=== PATIENT | female | born 1960 | race Two or more races ===

== ENCOUNTER 2022-08-17 16:26 | Emergency (ER) | payer MEDICAID, OTHER ==
[~2022-08-17] VITALS: Ht 165.1 cm; Wt 117.0 kg
[2022-08-17] MEDS ORDERED: KETOROLAC TROMETHAMINE INJ 30 MG/ML VIAL ONE (16:43)
[2022-08-17] MEDS ORDERED: CYCLOBENZAPRINE 10 MG TABLET ONE (16:43)
--- NOTE | 2022-08-17 16:45 | NUR ---
[id number] FROM HOME FOR LOWER BACK PAIN RADIATING TO LEFT KNEE X 2 WEEKS
[2022-08-17] MEDS ORDERED: TRAMADOL HCL 50 MG TABLET ONE (16:49)
[2022-08-17] MEDS ORDERED: TRAMADOL HCL 50 MG TABLET PO ONE (17:00)
[2022-08-17] MEDS ORDERED: CYCLOBENZAPRINE 10 MG TABLET PO ONE (17:00)
[2022-08-17] MEDS ORDERED: KETOROLAC TROMETHAMINE INJ 60 MG/2 ML VIAL IM ONE (17:00)
--- NOTE | 2022-08-17 19:36 | NUR ---
Long AOx4, able to express her concerns. Patient with no nigsn of distress. Reports she has been experiencing sciatica pain on left extremity. No signs of distress or discomfort. Discussed plan of care, patient verbalized agreement.
[2022-08-17] MEDS ORDERED: KETO10TA2 PO (20:29)
[2022-08-17] MEDS ORDERED: TRAM50TA2 PO (20:29)
--- NOTE | 2022-08-17 21:14 | NUR ---
[facility] ETA 90 MINUTES- 2 HOURS.
[2022-08-17 21:52] VITALS: BP 154/80
== END 2022-08-17 21:53 | disposition home or self-care (01) ==
LOC: ER 16:47
DX: M25.562 Pain in left knee (principal); I10 Essential (primary) hypertension; F32.A Depression, unspecified; F41.9 Anxiety disorder, unspecified; Z98.890 Other specified postprocedural states; Z79.899 Other long term (current) drug therapy
CPT/HCPCS: 99283; 96372; 73564; J1885